=== PATIENT | female | born 1960 | race Caucasian/White ===

== ENCOUNTER → 2024-02-24 12:54 | Outpatient (REF) | payer OTHER, SELFPAY | LOC: RAD 12:54 | PROVIDERS: ATTENDING PHYSICIAN Student in an Organized Health Care Education/Training Program; FAMILY PHYSICIAN Family Medicine | DX: R10.31 Right lower quadrant pain (principal) | CPT/HCPCS: 74177; Q9967 ==

== ENCOUNTER → 2024-03-03 09:40 | Outpatient (REF) | payer OTHER, SELFPAY | LOC: RAD 09:40 | PROVIDERS: ATTENDING PHYSICIAN Student in an Organized Health Care Education/Training Program; FAMILY PHYSICIAN Family Medicine | DX: R10.31 Right lower quadrant pain (principal); N83.202 Unspecified ovarian cyst, left side | CPT/HCPCS: 76705; 76830; 76856 ==

== ENCOUNTER → 2024-11-06 14:13 | Outpatient (REF) | payer OTHER, SELFPAY | LOC: RAD 14:13 | PROVIDERS: ATTENDING PHYSICIAN Student in an Organized Health Care Education/Training Program; FAMILY PHYSICIAN Family Medicine | DX: M54.50 Low back pain, unspecified (principal) | CPT/HCPCS: 72110 ==

== ENCOUNTER → 2024-12-20 14:11 | Outpatient (REF) | payer MEDICARE, SELFPAY | LOC: RAD 14:11 | PROVIDERS: ATTENDING PHYSICIAN Family Medicine | DX: Z13.820 Encounter for screening for osteoporosis (principal); M81.0 Age-related osteoporosis without current pathological fracture | CPT/HCPCS: 77080 ==